=== PATIENT | male | born 1950 | race Two or more races ===

== ENCOUNTER 2017-05-02 14:07 | Emergency (ER) | payer MEDICARE ==
[2017-05-02 14:11] VITALS: BP 143/70; PULSE 63; TEMP 98.3; BMI 30.4
--- NOTE | 2017-05-02 15:03 | PDOC ---
History of Present Illness - General Chief Complaint: Cold Symptoms Stated Complaint: COLD SYMPTOMS Time Seen by Provider: 05/02/17 14:56 History Source: Patient Exam Limitations: No Limitations - History of Present Illness Initial Comments: 05/02/17 15:04 Here with complaints of congestion, throat pain, moist cough and bringing up thick white yellow phlegm 3 days. States younger daughter is ill with same. States smokes cigarettes every other day, but no alcohol or other drug use. Has taken [id number] medications and some aspirin for pain relief with minimal resolved. Timing/Duration: reports: changing over time, getting worse Severity: reports: mild, moderate Associated Symptoms: reports: cough, fever/chills, headache, nasal congestion, sore throat Past History - Travel Traveled outside of the country in the last 30 days: No Close contact w/someone who was outside of country & ill: No - Past Medical History Allergies/Adverse Reactions: Allergies Allergy/AdvReac Type Severity Reaction Status Date / Time No Known Allergies Allergy Verified 05/02/17 14:11 Home Medications: Ambulatory Orders Amlodipine/Valsartan [Exforge 10-160 mg Tablet] 1 tab PO DAILY 04/12/15 Aspirin [ASA -] 81 mg PO DAILY 04/12/15 Nebivolol HCl [Bystolic] 10 mg PO DAILY 04/12/15 Azithromycin [Zithromax -] 250 mg PO UTDICT #6 tab 05/02/17 Omeprazole 20 mg PO 05/02/17 Silodosin [Rapaflo] 8 mg PO 05/02/17 Cardiac Disorders: Yes HTN: Yes - Surgical History Cardiac Surgery: Yes (possible stents, cath) - Immunization History Immunization Up to Date: Yes - Psycho/Social/Smoking Cessation Hx Anxiety: Yes Suicidal Ideation: No Smoking Status: Yes Smoking History: Current every day smoker Number of Cigarettes Smoked Daily: 2 Information on smoking cessation initiated: Yes 'Breaking Loose' booklet given: 05/02/17 Hx Alcohol Use: No Drug/Substance Use Hx: No Respiratory Specific PMHX - Complaint Specific PMHX Angina: No Bronchitis: No Review of Systems - Review of Systems Able to Perform ROS?: Yes Is the patient limited Yi proficient: Yes Constitutional: Yes: Symptoms Reported, See HPI, Chills, Fever, Loss of Appetite , Malaise HEENTM: Yes: Symptoms Reported, See HPI, Nose Congestion, Throat Pain Respiratory: Yes: Symptoms reported, See HPI, Cough. No: Shortness of Breath, Wheezing Musculoskeletal: Yes: Symptoms Reported, See HPI, Muscle Pain Integumentary: Yes: See HPI. No: Symptoms Reported Neurological: Yes: Symptoms reported, See HPI, Headache All Other Systems: Reviewed and Negative *Physical Exam - Vital Signs Last Vital Signs Temp Pulse Resp BP Pulse Ox 98.3 F 63 18 143/70 99 05/02/17 14:05/02/17 14:05/02/17 14:05/02/17 14:05/02/17 14:09 - Physical Exam General Appearance: Yes: Nourished, Appropriately Dressed, Apparent Distress, Mild Distress HEENT: positive: ERWIN, TMs Normal (congested but landmarks easily visualized), Pharynx Normal (mild erythema with posterior sinus drainage noted thick white), Rhinorrhea, Sinus Tenderness. negative: Normal ENT Inspection Respiratory/Chest: positive: Lungs Clear (course into toward expiratory breath sounds, no wheezing or retractions). negative: Normal Breath Sounds Cardiovascular: positive: Regular Rhythm Gastrointestinal/Abdominal: positive: Normal Bowel Sounds, Soft. negative: Tender Musculoskeletal: positive: Normal Inspection Extremity: positive: Normal Capillary Refill, Normal Inspection Integumentary: positive: Normal Color, Dry, Warm, Pale Neurologic: positive: registration representative II-XII NML intact, Fully Oriented, Alert, Normal Mood/ Affect, Normal Response, Motor Strength 5/5 Progress Note - Progress Note Progress Note: Upper respiratory infection, patient is an intermittent smoker therefore we will treat with Zithromax for bacterial infection and have follow-up with PMD *DC/Admit/Observation/Transfer Diagnosis at time of Disposition: Bronchitis - Discharge Dispostion Disposition: HOME Condition at time of disposition: Stable Admit: No - Prescriptions Prescriptions: Azithromycin [Zithromax -] 250 mg PO UTDICT #6 tab - Referrals Referrals: Vincent Cano MD [Primary Care Provider] - - Patient Instructions Printed Discharge Instructions: DI for Acute Bronchitis Additional Instructions: Rest, drink lots of fluids: Teas, water, soups, Pedialyte Saltwater gargles Steamy showers/seem to face break up mucus Avoid contact with others until fevers and cough resolved Lots of handwashing and good hygiene Continue [id number] medications for symptomatic relief Tylenol or Motrin for fever and pain Zithromax as directed Followup with private physician in one to 2 days as needed Return to emergency department for worsened symptoms, fevers, dehydration
== END 2017-05-02 15:27 | disposition home or self-care (01) ==
LOC: JERFT 14:07
DX: J20.9 Acute bronchitis, unspecified (principal); F17.210 Nicotine dependence, cigarettes, uncomplicated; Z95.5 Presence of coronary angioplasty implant and graft
CPT/HCPCS: 99281-25

== ENCOUNTER 2017-07-03 07:42 | Emergency (ER) | payer MEDICARE ==
[2017-07-03 07:54] VITALS: BP 141/72; PULSE 72; TEMP 99.4; BMI 30.2
[2017-07-03] MEDS ORDERED: IBUPROFEN 600 MG TABLET (FP) PO ONE ×2 (08:41→08:42)
--- NOTE | 2017-07-03 08:43 | PDOC ---
History of Present Illness - General Chief Complaint: Cold Symptoms Stated Complaint: FEVER, COLD SYMPTOMS Time Seen by Provider: 07/03/17 08:22 History Source: Patient Exam Limitations: No Limitations - History of Present Illness Initial Comments: 07/03/17 08:41 Patient came to emergency department for evaluation of cough nonproductive, chills and fevers, body aches, sore throat pain. Has taken only Tylenol last night for relief of symptoms. Is an occasional smoker. 07/03/17 09:15 07/03/17 09:23 07/03/17 11:28 Timing/Duration: reports: getting worse Severity: reports: mild, moderate Associated Symptoms: reports: chest pain/soreness, cough, fever/chills, nasal drainage, sore throat Past History - Travel Traveled outside of the country in the last 30 days: No Close contact w/someone who was outside of country & ill: No - Past Medical History Allergies/Adverse Reactions: Allergies Allergy/AdvReac Type Severity Reaction Status Date / Time No Known Allergies Allergy Verified 07/03/17 07:54 Home Medications: Ambulatory Orders Amlodipine/Valsartan [Exforge 10-160 mg Tablet] 1 tab PO DAILY 04/12/15 Aspirin [ASA -] 81 mg PO DAILY 04/12/15 Nebivolol HCl [Bystolic] 10 mg PO DAILY 04/12/15 Omeprazole 20 mg PO DAILY 05/02/17 Silodosin [Rapaflo] 8 mg PO DAILY 05/02/17 Azithromycin [Zithromax -] 250 mg PO UTDICT #6 tab 07/03/17 Cardiac Disorders: Yes HTN: Yes - Surgical History Cardiac Surgery: Yes (cath) - Immunization History Immunization Up to Date: Yes - Suicide/Smoking/Psychosocial Hx Smoking Status: Yes Smoking History: Current some day smoker Number of Cigarettes Smoked Daily: 4 Information on smoking cessation initiated: No 'Breaking Loose' booklet given: 05/02/17 Hx Alcohol Use: No Drug/Substance Use Hx: No Respiratory Specific PMHX - Complaint Specific PMHX Angina: No Bronchitis: No Review of Systems - Review of Systems Able to Perform ROS?: Yes Is the patient limited Gambian proficient: Yes Constitutional: Yes: Symptoms Reported, See HPI, Chills, Fever, Malaise HEENTM: Yes: Symptoms Reported, See HPI, Nose Congestion, Throat Pain Respiratory: Yes: Symptoms reported, See HPI, Cough (non productive ) ABD/GI: Yes: See HPI. No: Symptoms Reported : Yes: See HPI. No: Symptoms Reported Musculoskeletal: Yes: Symptoms Reported, Joint Pain Integumentary: Yes: Symptoms Reported, See HPI Neurological: Yes: Symptoms reported, See HPI, Headache All Other Systems: Reviewed and Negative *Physical Exam - Vital Signs Last Vital Signs Temp Pulse Resp BP Pulse Ox 99.4 F 72 20 141/72 97 07/03/17 07:52 07/03/17 07:52 07/03/17 07:52 07/03/17 07:52 07/03/17 07:52 - Physical Exam General Appearance: Yes: Nourished, Appropriately Dressed, Apparent Distress, Mild Distress HEENT: positive: ERWIN, Pharynx Normal (erythema without exudate), Rhinorrhea ( clear), Sinus Tenderness. negative: TMs Normal (congested ) Neck: positive: Supple. negative: Tender Respiratory/Chest: positive: Normal Breath Sounds. negative: Lungs Clear ( course bilaterally, no wheezing or retractions) Cardiovascular: positive: Regular Rate Extremity: positive: Normal Capillary Refill, Normal Inspection Integumentary: positive: Dry, Warm, Pale Neurologic: positive: compensation adjuster II-XII NML intact, Fully Oriented, Alert, Normal Mood/ Affect, Normal Response, Motor Strength 5/5 Progress Note - Progress Note Progress Note: Upper respiratory infection, influenza testing negative. We will treat with Z- Noam as patient is a smoker and febrile with a respiratory illness. *DC/Admit/Observation/Transfer Diagnosis at time of Disposition: Bronchitis, acute Qualifiers: Bronchitis organism: unspecified organism Qualified Code(s): J20.9 - Acute bronchitis, unspecified - Discharge Dispostion Disposition: HOME Condition at time of disposition: Stable Admit: No - Prescriptions Prescriptions: Azithromycin [Zithromax -] 250 mg PO UTDICT #6 tab - Referrals Referrals: Vincent Cano MD [Primary Care Provider] - - Patient Instructions Printed Discharge Instructions: DI for Viral Upper Respiratory Infection -- Adult Additional Instructions: Rest, drink lots of fluids: Teas, water, soups, Pedialyte Saltwater gargles Steamy showers/seem to face break up mucus Avoid contact with others until fevers and cough resolved Lots of handwashing and good hygiene Continue [id number] medications for symptomatic relief Tylenol or Motrin for fever and pain Zithromax as directed Followup with private physician in one to 2 days as needed Return to emergency department for worsened symptoms, fevers, dehydration - Post Discharge Activity Forms/Work/School Notes: Back to Work
== END 2017-07-03 09:46 | disposition home or self-care (01) ==
LOC: JERFT 07:42
DX: J20.9 Acute bronchitis, unspecified (principal); I25.10 Atherosclerotic heart disease of native coronary artery without angina pectoris; Z98.61 Coronary angioplasty status; I10 Essential (primary) hypertension; F17.211 Nicotine dependence, cigarettes, in remission
CPT/HCPCS: 87804; 99281-25

== ENCOUNTER 2020-12-22 16:05 | Inpatient (IN) | payer MEDICARE ==
[2020-12-22] MEDS ORDERED: METOPROLOL TARTRATE 5 MG/5 ML VIAL IVPUSH ONE ×2 (16:47→18:49)
[2020-12-22] MEDS ORDERED: METOPROLOL TARTRATE 5 MG/5 ML VIAL ONE ×2 (17:01→20:05)
[2020-12-22 18:00] LABS: BASO % 1.2 % (0-2.0); HEMATOCRIT 45.1 % (35.4-49); LYMPH % 39.2 % (8-40); MCH 29.6 pg (25.7-33.7); MCHC 33.2 g/dl (32.0-35.9); MEAN CELL VOLUME 89.4 fl (80-96); MEAN PLT VOLUME 10.6 fl (7.5-11.1); MONO % 9.8 % (3.8-10.2); NEUT % 48.8 % (42.8-82.8); PLATELET COUNT 217 K/MM3 (134-434); RBC 5.05 M/mm3 (4.00-5.60); RDW 14.8 % (11.9-15.9); WHITE BLOOD COUNT 5.9 K/mm3 (4.0-10.0)
[2020-12-22 18:20] LABS: CHLORIDE 104 mmol/L (98-107); POTASSIUM 3.6 mmol/L (3.5-5.1); SODIUM 138 mmol/L (136-145)
[2020-12-22 18:22] LABS: CALCIUM 9.6 mg/dL (8.5-10.1)
[2020-12-22 18:23] LABS: ALBUMIN 3.7 g/dl (3.4-5.0); ANION GAP 6 MMOL/L (8-16); BLOOD UREA NITROGEN 18.7 mg/dL (7-18); CO2 28 mmol/L (21-32); GLUCOSE,RANDOM 98 mg/dL (74-106)
[2020-12-22 18:26] LABS: CREATININE 1.3 mg/dL (0.55-1.3); SGOT/AST 25 U/L (15-37); SGPT/ALT 36 U/L (13-61)
[2020-12-22 18:28] LABS: TOT PROT 7.2 g/dl (6.4-8.2)
[2020-12-22 18:29] LABS: ALK PHOS 51 U/L (45-117)
[2020-12-22] MEDS ORDERED: METOPROLOL TARTRATE 25 MG TABLET (FP) PO ONE (19:17)
[2020-12-22 19:56] LABS: INR 1.43 (0.83-1.09); PROTHROMBIN TIME (PATIENT) 17.1 SEC (9.7-13.0)
[2020-12-22 19:59] LABS: ACTIVATED PTT 33.6 SECONDS (25.2-36.5)
[2020-12-22] MEDS ORDERED: METOPROLOL TARTRATE 25 MG TABLET (FP) ONE (20:05)
[2020-12-22] MEDS ORDERED: APIXABAN 5 MG TABLET ONE (22:44)
[2020-12-22] MEDS: APIXABAN 5 MG TABLET PO SCH (22:46)
[2020-12-23 00:32] VITALS: BMI 29.4
[2020-12-23 07:45] LABS: BASO % 1.1 % (0-2.0); EOS % 1.4 % (0-4.5); HEMATOCRIT 45.2 % (35.4-49); HEMOGLOBIN 15.4 GM/dL (11.7-16.9); LYMPH % 39.5 % (8-40); MCH 30.1 pg (25.7-33.7); MEAN CELL VOLUME 88.7 fl (80-96); MEAN PLT VOLUME 10.3 fl (7.5-11.1); MONO % 10.6 % (3.8-10.2); NEUT % 47.4 % (42.8-82.8); PLATELET COUNT 196 K/MM3 (134-434); RDW 14.6 % (11.9-15.9); WHITE BLOOD COUNT 5.4 K/mm3 (4.0-10.0)
[2020-12-23 08:01] LABS: CALCIUM 9.1 mg/dL (8.5-10.1)
[2020-12-23 08:02] LABS: ALBUMIN 3.5 g/dl (3.4-5.0); BLOOD UREA NITROGEN 14.6 mg/dL (7-18)
[2020-12-23 08:05] LABS: CREATININE 1.1 mg/dL (0.55-1.3)
[2020-12-23 08:06] LABS: BILIRUBIN,TOTAL 1.8 mg/dL (0.2-1)
[2020-12-23] MEDS: APIXABAN 5 MG TABLET PO SCH ×2 (09:40→21:19)
[2020-12-23] MEDS: TAMSULOSIN HCL 0.4 MG CAP PO SCH (09:40)
[2020-12-23] MEDS: ASCORBIC ACID 500 MG TABLET (FP) PO SCH (09:40)
[2020-12-23] MEDS: POTASSIUM CHLORIDE TABS 20 MEQ TABLET.ER (FP) PO SCH (09:56)
[2020-12-23] MEDS ORDERED: metoPROLOL SUCCINATE 25 MG TAB.SR.24H (FP) PO SCH (10:00)
[2020-12-23] MEDS ORDERED: ASPIRIN 81 MG CHEWABLE TABLETS PO SCH (10:00)
[2020-12-24 08:26] LABS: POTASSIUM 3.8 mmol/L (3.5-5.1)
[2020-12-24 08:29] LABS: CALCIUM 9.2 mg/dL (8.5-10.1)
[2020-12-24 08:30] LABS: BLOOD UREA NITROGEN 15.6 mg/dL (7-18)
[2020-12-24 08:33] LABS: CREATININE 1.2 mg/dL (0.55-1.3)
[2020-12-24] MEDS: POTASSIUM CHLORIDE TABS 20 MEQ TABLET.ER (FP) PO SCH (09:21)
[2020-12-24] MEDS: APIXABAN 5 MG TABLET PO SCH ×2 (09:21→21:52)
[2020-12-24] MEDS: TAMSULOSIN HCL 0.4 MG CAP PO SCH (09:22)
[2020-12-24] MEDS: ASCORBIC ACID 500 MG TABLET (FP) PO SCH (09:22)
[2020-12-24] MEDS: amLODIPine BESYLATE 5 MG TABLET (FP) PO SCH (09:57)
[2020-12-25 07:57] LABS: HEMATOCRIT 44.2 % (35.4-49); HEMOGLOBIN 15.1 GM/dL (11.7-16.9); MCH 30.5 pg (25.7-33.7); MCHC 34.1 g/dl (32.0-35.9); MEAN CELL VOLUME 89.6 fl (80-96); MEAN PLT VOLUME 10.6 fl (7.5-11.1); PLATELET COUNT 188 K/MM3 (134-434); RBC 4.94 M/mm3 (4.00-5.60); WHITE BLOOD COUNT 5.5 K/mm3 (4.0-10.0)
[2020-12-25 08:20] LABS: POTASSIUM 3.5 mmol/L (3.5-5.1)
[2020-12-25 08:25] LABS: CALCIUM 9.1 mg/dL (8.5-10.1)
[2020-12-25 08:26] LABS: ALBUMIN 3.4 g/dl (3.4-5.0); BLOOD UREA NITROGEN 18.5 mg/dL (7-18)
[2020-12-25 08:29] LABS: CREATININE 1.2 mg/dL (0.55-1.3)
[2020-12-25 08:30] LABS: BILIRUBIN,TOTAL 1.2 mg/dL (0.2-1)
[2020-12-25 08:31] LABS: TOT PROT 6.7 g/dl (6.4-8.2)
[2020-12-25] MEDS: POTASSIUM CHLORIDE TABS 20 MEQ TABLET.ER (FP) PO SCH (09:53)
[2020-12-25] MEDS: APIXABAN 5 MG TABLET PO SCH ×2 (09:54→21:22)
[2020-12-25] MEDS: TAMSULOSIN HCL 0.4 MG CAP PO SCH (09:54)
[2020-12-25] MEDS: amLODIPine BESYLATE 5 MG TABLET (FP) PO SCH (09:54)
[2020-12-25] MEDS: ASCORBIC ACID 500 MG TABLET (FP) PO SCH (09:54)
[2020-12-25] MEDS: dilTIAZem HCL 30 MG TABLET PO SCH ×2 (14:39→21:22)
[2020-12-26] MEDS: dilTIAZem HCL 30 MG TABLET PO SCH (05:17)
[2020-12-26 07:28] LABS: HEMATOCRIT 45.6 % (35.4-49); HEMOGLOBIN 15.6 GM/dL (11.7-16.9); MCH 30.1 pg (25.7-33.7); MCHC 34.2 g/dl (32.0-35.9); MEAN CELL VOLUME 87.9 fl (80-96); MEAN PLT VOLUME 10.1 fl (7.5-11.1); PLATELET COUNT 196 K/MM3 (134-434); RBC 5.19 M/mm3 (4.00-5.60); RDW 14.9 % (11.9-15.9); WHITE BLOOD COUNT 5.1 K/mm3 (4.0-10.0)
[2020-12-26 07:52] LABS: POTASSIUM 3.7 mmol/L (3.5-5.1)
[2020-12-26 08:08] LABS: ALBUMIN 3.5 g/dl (3.4-5.0); BLOOD UREA NITROGEN 20.4 mg/dL (7-18); CALCIUM 9.2 mg/dL (8.5-10.1)
[2020-12-26 08:11] LABS: CREATININE 1.2 mg/dL (0.55-1.3)
[2020-12-26 08:13] LABS: BILIRUBIN,TOTAL 1.7 mg/dL (0.2-1); TOT PROT 6.8 g/dl (6.4-8.2)
[2020-12-26] MEDS: TAMSULOSIN HCL 0.4 MG CAP PO SCH (09:48)
[2020-12-26] MEDS: ASCORBIC ACID 500 MG TABLET (FP) PO SCH (09:48)
[2020-12-26] MEDS: POTASSIUM CHLORIDE TABS 20 MEQ TABLET.ER (FP) PO SCH (09:48)
[2020-12-26] MEDS: APIXABAN 5 MG TABLET PO SCH (09:48)
[2020-12-26 15:41] VITALS: BP 140/84; PULSE 85; TEMP 98.2
== END 2020-12-26 16:46 | disposition home or self-care (01) | DRG 310 ==
LOC: JER 16:05 → JERBED 19:32 → J4W 23:35
PROVIDERS: ADMIT Internal Medicine; ATTEND Family Medicine
DX: I48.91 Unspecified atrial fibrillation (principal); I10 Essential (primary) hypertension; I25.10 Atherosclerotic heart disease of native coronary artery without angina pectoris; R07.9 Chest pain, unspecified; E87.6 Hypokalemia; E66.9 Obesity, unspecified; Z68.29 Body mass index [BMI] 29.0-29.9, adult; R00.0 Tachycardia, unspecified
CPT/HCPCS: 36415; 71045-TC-FY; 80048; 80053; 84443; 84484; 85025; 85027; 85610; 85730; 93005; 93010; 99285-25; C9803; U0003

== ENCOUNTER 2021-02-15 12:51 | Inpatient (IN) | payer MEDICARE ==
[2021-02-15 13:10] VITALS: BMI 30.1
[2021-02-15] MEDS ORDERED: FUROSEMIDE 40 MG/4 ML INJECTABLE VIAL IVPUSH ONE (14:48)
[2021-02-15] MEDS ORDERED: dilTIAZem HCL 50 MG/10 ML - 10 ML VIAL IVPUSH ONE (14:54)
[2021-02-15] MEDS ORDERED: dilTIAZem HCL 125 MG/25 ML - 25 ML VIAL ONE (14:58)
[2021-02-15] MEDS ORDERED: FUROSEMIDE 40 MG/4 ML INJECTABLE VIAL ONE (15:00)
[2021-02-15 15:20] LABS: BASO % 1.2 % (0-2.0); EOS % 1.3 % (0-4.5); HEMATOCRIT 46.1 % (35.4-49); HEMOGLOBIN 16.2 GM/dL (11.7-16.9); LYMPH % 41.4 % (8-40); MCH 30.6 pg (25.7-33.7); MCHC 35.1 g/dl (32.0-35.9); MEAN CELL VOLUME 87.2 fl (80-96); MEAN PLT VOLUME 10.1 fl (7.5-11.1); MONO % 10.5 % (3.8-10.2); NEUT % 45.6 % (42.8-82.8); PLATELET COUNT 163 K/MM3 (134-434); RBC 5.29 M/mm3 (4.00-5.60); RDW 15.1 % (11.9-15.9); WHITE BLOOD COUNT 6.7 K/mm3 (4.0-10.0)
[2021-02-15 15:24] LABS: INR 1.61 (0.83-1.09); PROTHROMBIN TIME (PATIENT) 19.5 SEC (9.7-13.0)
[2021-02-15 15:57] LABS: CHLORIDE 102 mmol/L (98-107); SODIUM 138 mmol/L (136-145)
[2021-02-15 16:00] LABS: ALBUMIN 3.7 g/dl (3.4-5.0); ANION GAP 7 MMOL/L (8-16); CALCIUM 9.2 mg/dL (8.5-10.1); CO2 29 mmol/L (21-32); GLUCOSE,RANDOM 91 mg/dL (74-106)
[2021-02-15 16:01] LABS: BLOOD UREA NITROGEN 16.4 mg/dL (7-18)
[2021-02-15 16:02] LABS: PHOSPHOROUS 3.8 mg/dL (2.5-4.9)
[2021-02-15 16:03] LABS: SGPT/ALT 28 U/L (13-61)
[2021-02-15 16:04] LABS: CREATININE 1.7 mg/dL (0.55-1.3); SGOT/AST 38 U/L (15-37)
[2021-02-15 16:05] LABS: TOT PROT 7.2 g/dl (6.4-8.2)
[2021-02-15 16:06] LABS: ALK PHOS 56 U/L (45-117)
[2021-02-15 16:12] LABS: N-TERMINAL BNP 3925.3 pg/ml (5-125)
[2021-02-15 16:30] LABS: BILIRUBIN,TOTAL 0.9 mg/dL (0.2-1)
[2021-02-15] MEDS ORDERED: dilTIAZem HCL 30 MG TABLET PO ONE (17:19)
[2021-02-15] MEDS ORDERED: dilTIAZem HCL 30 MG TABLET ONE (17:27)
[2021-02-16] MEDS: APIXABAN 5 MG TABLET PO SCH ×3 (00:31→22:33)
[2021-02-16] MEDS ORDERED: METOPROLOL TARTRATE 5 MG/5 ML VIAL IVPUSH ONE (00:42)
[2021-02-16 07:11] LABS: EOS % 0.8 % (0-4.5); HEMATOCRIT 47.1 % (35.4-49); HEMOGLOBIN 16.1 GM/dL (11.7-16.9); LYMPH % 35.9 % (8-40); MCH 30.4 pg (25.7-33.7); MCHC 34.2 g/dl (32.0-35.9); MEAN CELL VOLUME 88.8 fl (80-96); MEAN PLT VOLUME 11.3 fl (7.5-11.1); MONO % 10.5 % (3.8-10.2); NEUT % 51.8 % (42.8-82.8); PLATELET COUNT 161 K/MM3 (134-434); RDW 15.3 % (11.9-15.9); WHITE BLOOD COUNT 5.9 K/mm3 (4.0-10.0)
[2021-02-16 07:26] LABS: CHLORIDE 103 mmol/L (98-107); SODIUM 142 mmol/L (136-145)
[2021-02-16 07:29] LABS: CALCIUM 9.1 mg/dL (8.5-10.1)
[2021-02-16] MEDS ORDERED: ALBUTEROL SO4 HFA INHALER IH PRN (07:29)
[2021-02-16 07:30] LABS: ALBUMIN 3.7 g/dl (3.4-5.0); ANION GAP 7 MMOL/L (8-16); BLOOD UREA NITROGEN 18.9 mg/dL (7-18); CO2 32 mmol/L (21-32); GLUCOSE,RANDOM 102 mg/dL (74-106); MAGNESIUM 1.8 mg/dL (1.8-2.4)
[2021-02-16 07:33] LABS: CREATININE 1.5 mg/dL (0.55-1.3); SGOT/AST 14 U/L (15-37); SGPT/ALT 26 U/L (13-61)
[2021-02-16 07:35] LABS: BILIRUBIN,TOTAL 1.3 mg/dL (0.2-1); TOT PROT 7.2 g/dl (6.4-8.2)
[2021-02-16 07:36] LABS: ALK PHOS 52 U/L (45-117)
[2021-02-16] MEDS ORDERED: METOPROLOL TARTRATE 5 MG/5 ML VIAL IVPUSH PRN (08:45)
[2021-02-16] MEDS: TAMSULOSIN HCL 0.4 MG CAP PO SCH (09:00)
[2021-02-16] MEDS: ASPIRIN 81 MG CHEWABLE TABLETS PO SCH (09:44)
[2021-02-16] MEDS: CYANOCOBALAMIN 1,000 MCG TABLET (FP) PO SCH (09:44)
[2021-02-16] MEDS: ASCORBIC ACID 500 MG TABLET (FP) PO SCH (09:44)
[2021-02-16] MEDS: FUROSEMIDE 40 MG/4 ML INJECTABLE VIAL IVPUSH SCH (10:08)
[2021-02-16] MEDS: POTASSIUM CHLORIDE TABS 20 MEQ TABLET.ER (FP) PO SCH (12:51)
[2021-02-16 19:50] LABS: EPI CELLS 12 /uL (0-25.1); HYALINE CASTS 1 /uL (0-3.1); URINE APPEARANCE CLEAR; URINE BACTERIA 522 /uL (0-1359); URINE BILIRUBIN NEGATIVE (NEGATIVE); URINE COLOR YELLOW; URINE GLUCOSE (UA) NEGATIVE (NEGATIVE); URINE KETONE TRACE (NEGATIVE); URINE LEUK ESTERASE NEGATIVE (NEGATIVE); URINE NITRITE NEGATIVE (NEGATIVE); URINE PROTEIN 1+ (NEGATIVE); URINE RBC 31 /uL (0-23.9); URINE UROBILINOGEN 0.2 mg/dL (0.2-1.0); URINE WBC 18 /uL (0-25.8)
[2021-02-16] MEDS ORDERED: POTASSIUM CHLORIDE TABS 20 MEQ TABLET.ER (FP) PO ONE (22:00)
[2021-02-17 07:24] LABS: CALCIUM 9.1 mg/dL (8.5-10.1)
[2021-02-17 07:25] LABS: ALBUMIN 3.8 g/dl (3.4-5.0); BLOOD UREA NITROGEN 18.6 mg/dL (7-18)
[2021-02-17 07:28] LABS: CREATININE 1.4 mg/dL (0.55-1.3)
[2021-02-17 07:29] LABS: BILIRUBIN,TOTAL 1.7 mg/dL (0.2-1)
[2021-02-17] MEDS: POTASSIUM CHLORIDE TABS 20 MEQ TABLET.ER (FP) PO SCH (09:28)
[2021-02-17] MEDS: APIXABAN 5 MG TABLET PO SCH ×2 (09:28→22:17)
[2021-02-17] MEDS: TAMSULOSIN HCL 0.4 MG CAP PO SCH (09:28)
[2021-02-17] MEDS: ASPIRIN 81 MG CHEWABLE TABLETS PO SCH (09:28)
[2021-02-17] MEDS: ASCORBIC ACID 500 MG TABLET (FP) PO SCH (09:29)
[2021-02-17] MEDS: CYANOCOBALAMIN 1,000 MCG TABLET (FP) PO SCH (09:29)
[2021-02-17] MEDS: FUROSEMIDE 40 MG/4 ML INJECTABLE VIAL IVPUSH SCH (09:29)
[2021-02-17 12:09] LABS: SARS-CoV-2 NAA Not Detected (Not Detected)
[2021-02-17] MEDS ORDERED: FUROSEMIDE 40 MG/4 ML INJECTABLE VIAL IVPUSH ONE (15:00)
[2021-02-17 21:10] LABS: CALCIUM 9.2 mg/dL (8.5-10.1)
[2021-02-17 21:11] LABS: BLOOD UREA NITROGEN 17.2 mg/dL (7-18); MAGNESIUM 1.9 mg/dL (1.8-2.4)
[2021-02-17 21:14] LABS: CREATININE 1.6 mg/dL (0.55-1.3)
[2021-02-18 07:47] LABS: ALBUMIN 3.6 g/dl (3.4-5.0); BLOOD UREA NITROGEN 18.2 mg/dL (7-18); CALCIUM 9.6 mg/dL (8.5-10.1); MAGNESIUM 1.9 mg/dL (1.8-2.4)
[2021-02-18 07:51] LABS: CREATININE 1.6 mg/dL (0.55-1.3)
[2021-02-18 07:52] LABS: BILIRUBIN,TOTAL 1.4 mg/dL (0.2-1); TOT PROT 6.9 g/dl (6.4-8.2)
[2021-02-18] MEDS: POTASSIUM CHLORIDE TABS 20 MEQ TABLET.ER (FP) PO SCH (09:39)
[2021-02-18] MEDS: TAMSULOSIN HCL 0.4 MG CAP PO SCH (09:39)
[2021-02-18] MEDS: ASPIRIN 81 MG CHEWABLE TABLETS PO SCH (09:39)
[2021-02-18] MEDS: APIXABAN 5 MG TABLET PO SCH ×2 (09:39→22:25)
[2021-02-18] MEDS: CYANOCOBALAMIN 1,000 MCG TABLET (FP) PO SCH (09:40)
[2021-02-18] MEDS: ASCORBIC ACID 500 MG TABLET (FP) PO SCH (09:40)
[2021-02-18] MEDS: FUROSEMIDE 40 MG/4 ML INJECTABLE VIAL IVPUSH SCH (09:40)
[2021-02-19 07:14] LABS: HEMATOCRIT 43.7 % (35.4-49); MCH 30.2 pg (25.7-33.7); MCHC 34.2 g/dl (32.0-35.9); MEAN CELL VOLUME 88.1 fl (80-96); MEAN PLT VOLUME 10.9 fl (7.5-11.1); PLATELET COUNT 148 K/MM3 (134-434); RBC 4.96 M/mm3 (4.00-5.60); RDW 14.9 % (11.9-15.9); WHITE BLOOD COUNT 5.2 K/mm3 (4.0-10.0)
[2021-02-19 08:24] LABS: ALBUMIN 3.4 g/dl (3.4-5.0); CALCIUM 9.2 mg/dL (8.5-10.1)
[2021-02-19 08:25] LABS: BLOOD UREA NITROGEN 18.1 mg/dL (7-18); MAGNESIUM 1.8 mg/dL (1.8-2.4)
[2021-02-19 08:28] LABS: CREATININE 1.3 mg/dL (0.55-1.3); PHOSPHOROUS 3.3 mg/dL (2.5-4.9)
[2021-02-19 08:29] LABS: BILIRUBIN,TOTAL 1.1 mg/dL (0.2-1); TOT PROT 6.5 g/dl (6.4-8.2)
[2021-02-19] MEDS: POTASSIUM CHLORIDE TABS 20 MEQ TABLET.ER (FP) PO SCH (09:54)
[2021-02-19] MEDS: ASPIRIN 81 MG CHEWABLE TABLETS PO SCH (09:54)
[2021-02-19] MEDS: APIXABAN 5 MG TABLET PO SCH (09:54)
[2021-02-19] MEDS: ASCORBIC ACID 500 MG TABLET (FP) PO SCH (09:54)
[2021-02-19] MEDS: CYANOCOBALAMIN 1,000 MCG TABLET (FP) PO SCH (09:54)
[2021-02-19] MEDS: FUROSEMIDE 40 MG/4 ML INJECTABLE VIAL IVPUSH SCH (09:54)
[2021-02-19] MEDS: TAMSULOSIN HCL 0.4 MG CAP PO SCH (09:55)
[2021-02-19 14:13] VITALS: BP 131/93; PULSE 110; TEMP 98.1
[2021-02-20] MEDS ORDERED: FUROSEMIDE 40 MG TABLET (FP) PO SCH (10:00)
== END 2021-02-19 15:43 | disposition home or self-care (01) | DRG 308 ==
LOC: JER 12:51 → JERBED 17:16 → J4W 02-16 00:27
PROVIDERS: ADMIT Internal Medicine; ATTEND Family Medicine
DX: I48.91 Unspecified atrial fibrillation (principal); I50.33 Acute on chronic diastolic (congestive) heart failure; N17.9 Acute kidney failure, unspecified; I48.92 Unspecified atrial flutter; N40.0 Benign prostatic hyperplasia without lower urinary tract symptoms; E66.9 Obesity, unspecified; Z68.30 Body mass index [BMI] 30.0-30.9, adult; I11.0 Hypertensive heart disease with heart failure; I87.2 Venous insufficiency (chronic) (peripheral); R29.818 Other symptoms and signs involving the nervous system; E87.6 Hypokalemia
CPT/HCPCS: 36415; 71045-TC-FY; 76775-TC; 80048; 80053; 81003; 82550; 82553; 82570; 83735; 83880; 84100; 84156; 84439; 84443; 84484; 85025; 85027; 85610; 85730; 93005; 93010; 97116-GP; 97161-GP; 99285-25; C9803; U0003; U0005

== ENCOUNTER 2021-03-12 16:44 | Inpatient (IN) | payer MEDICARE, OTHER ==
[2021-03-12 17:52] LABS: BASO % 0.5 % (0-2.0); EOS % 0.7 % (0-4.5); HEMATOCRIT 46.6 % (35.4-49); HEMOGLOBIN 15.6 GM/dL (11.7-16.9); LYMPH % 29.5 % (8-40); MCH 29.9 pg (25.7-33.7); MCHC 33.4 g/dl (32.0-35.9); MEAN CELL VOLUME 89.5 fl (80-96); MONO % 8.2 % (3.8-10.2); NEUT % 61.1 % (42.8-82.8); PLATELET COUNT 192 K/MM3 (134-434); RBC 5.21 M/mm3 (4.00-5.60); RDW 15.7 % (11.9-15.9); WHITE BLOOD COUNT 8.2 K/mm3 (4.0-10.0)
[2021-03-12 17:58] LABS: INR 1.28 (0.83-1.09); PROTHROMBIN TIME (PATIENT) 15.4 SEC (9.7-13.0)
[2021-03-12 18:01] LABS: ACTIVATED PTT 30.6 SECONDS (25.2-36.5)
[2021-03-12] MEDS ORDERED: ALBUTEROL SO4 2.5/IPRATROPIUM 0.5 INH SOL 3 ML VIAL.NEB. NEB ONE ×2 (18:01→18:13)
[2021-03-12 18:11] LABS: CHLORIDE 106 mmol/L (98-107); SODIUM 141 mmol/L (136-145)
[2021-03-12 18:12] LABS: CALCIUM 9.2 mg/dL (8.5-10.1)
[2021-03-12 18:13] LABS: ALBUMIN 3.6 g/dl (3.4-5.0); ANION GAP 9 MMOL/L (8-16); BLOOD UREA NITROGEN 23.5 mg/dL (7-18); CO2 26 mmol/L (21-32); GLUCOSE,RANDOM 141 mg/dL (74-106)
[2021-03-12 18:16] LABS: CREATININE 1.7 mg/dL (0.55-1.3); SGOT/AST 40 U/L (15-37); SGPT/ALT 73 U/L (13-61)
[2021-03-12 18:17] LABS: BILIRUBIN,TOTAL 0.5 mg/dL (0.2-1); TOT PROT 6.5 g/dl (6.4-8.2)
[2021-03-12 18:20] LABS: ALK PHOS 59 U/L (45-117)
[2021-03-12 18:26] LABS: VENOUS BASE EXCESS -1.9 mmol/L (-2-2); VENOUS O2 SATURATION 86.7 % (70-80); VENOUS PCO2 33.9 mmHg (38-52); VENOUS PH 7.423 (7.310-7.410)
[2021-03-12] MEDS ORDERED: POTASSIUM CHLORIDE TABS 20 MEQ TABLET.ER (FP) PO ONE ×2 (19:49→21:55)
[2021-03-12] MEDS ORDERED: ALBUTEROL SO4 HFA INHALER IH PRN (21:58)
[2021-03-12] MEDS ORDERED: methylPREDNISolone NA SUCC 125 MG/2 ML VIAL IVPUSH ONE (22:00)
[2021-03-12] MEDS ORDERED: ALBUTEROL SO4 HFA INHALER IH ONE (22:13)
[2021-03-12] MEDS ORDERED: methylPREDNISolone NA SUCC 125 MG/2 ML VIAL ONE (22:13)
[2021-03-12] MEDS ORDERED: APIXABAN 5 MG TABLET ONE (22:13)
[2021-03-12] MEDS: APIXABAN 5 MG TABLET PO SCH (22:16)
[2021-03-12] MEDS ORDERED: ALBUTEROL SO4 2.5/IPRATROPIUM 0.5 INH SOL 3 ML VIAL.NEB. NEB PRN (23:43)
[2021-03-13 01:45] VITALS: BMI 38.7
[2021-03-13 06:43] LABS: BASO % 0.3 % (0-2.0); HEMATOCRIT 46.1 % (35.4-49); HEMOGLOBIN 15.5 GM/dL (11.7-16.9); LYMPH % 11.1 % (8-40); MCH 30.2 pg (25.7-33.7); MCHC 33.6 g/dl (32.0-35.9); MEAN CELL VOLUME 90.1 fl (80-96); MEAN PLT VOLUME 10.1 fl (7.5-11.1); MONO % 1.7 % (3.8-10.2); NEUT % 86.9 % (42.8-82.8); PLATELET COUNT 180 K/MM3 (134-434); RBC 5.12 M/mm3 (4.00-5.60); RDW 15.7 % (11.9-15.9); WHITE BLOOD COUNT 7.1 K/mm3 (4.0-10.0)
[2021-03-13 07:09] LABS: ALBUMIN 3.4 g/dl (3.4-5.0); BLOOD UREA NITROGEN 19.2 mg/dL (7-18)
[2021-03-13 07:11] LABS: CALCIUM 9.4 mg/dL (8.5-10.1)
[2021-03-13 07:14] LABS: CREATININE 1.5 mg/dL (0.55-1.3)
[2021-03-13 07:15] LABS: BILIRUBIN,TOTAL 1.7 mg/dL (0.2-1); TOT PROT 6.6 g/dl (6.4-8.2)
[2021-03-13] MEDS ORDERED: methylPREDNISolone NA SUCC 40 MG/1 ML VIAL IVPUSH SCH (10:00)
[2021-03-13] MEDS: APIXABAN 5 MG TABLET PO SCH ×2 (10:18→21:16)
[2021-03-13] MEDS: TAMSULOSIN HCL 0.4 MG CAP PO SCH (10:18)
[2021-03-13] MEDS: POTASSIUM CHLORIDE TABS 20 MEQ TABLET.ER (FP) PO SCH (10:19)
[2021-03-13] MEDS: ASPIRIN 81 MG CHEWABLE TABLETS PO SCH (10:20)
[2021-03-13] MEDS: ALBUTEROL SO4 2.5/IPRATROPIUM 0.5 INH SOL 3 ML VIAL.NEB. NEB SCH ×2 (15:25→20:40)
[2021-03-14 09:30] VITALS: BP 109/57; PULSE 90; TEMP 98.1
[2021-03-14] MEDS: TAMSULOSIN HCL 0.4 MG CAP PO SCH (09:44)
[2021-03-14] MEDS: APIXABAN 5 MG TABLET PO SCH (09:44)
[2021-03-14] MEDS: POTASSIUM CHLORIDE TABS 20 MEQ TABLET.ER (FP) PO SCH (09:45)
[2021-03-14] MEDS: ASPIRIN 81 MG CHEWABLE TABLETS PO SCH (09:45)
[2021-03-14] MEDS ORDERED: predniSONE 20 MG TABLET (UD) PO SCH (10:00)
== END 2021-03-14 10:33 | disposition home or self-care (01) | DRG 191 ==
LOC: JER 16:44 → JERBED 18:07 → J4S 03-13 00:42
PROVIDERS: ADMIT Internal Medicine; ATTEND Family Medicine
DX: J44.1 Chronic obstructive pulmonary disease with (acute) exacerbation (principal); N17.9 Acute kidney failure, unspecified; I50.32 Chronic diastolic (congestive) heart failure; I10 Essential (primary) hypertension; I48.91 Unspecified atrial fibrillation; E78.00 Pure hypercholesterolemia, unspecified; N40.0 Benign prostatic hyperplasia without lower urinary tract symptoms; E87.6 Hypokalemia; I11.0 Hypertensive heart disease with heart failure; R29.818 Other symptoms and signs involving the nervous system; Z86.711 Personal history of pulmonary embolism; Z86.718 Personal history of other venous thrombosis and embolism; Z86.73 Personal history of transient ischemic attack (TIA), and cerebral infarction without residual deficits
CPT/HCPCS: 36415; 71045-TC-FY; 80053; 82803; 83735; 83880; 84484; 85025; 85610; 85730; 93005; 93010; 94640; 99285-25; C9803; U0003; U0005

== ENCOUNTER 2021-05-21 14:37 | Inpatient (IN) | payer MEDICARE, OTHER ==
[2021-05-21 14:53] VITALS: BMI 30.1
[2021-05-21] MEDS ORDERED: dilTIAZem HCL 50 MG/10 ML - 10 ML VIAL IVPUSH ONE (15:42)
[2021-05-21] MEDS ORDERED: dilTIAZem HCL 125 MG/25 ML - 25 ML VIAL ONE (15:51)
[2021-05-21] MEDS ORDERED: dilTIAZem HCL 60 MG TABLET PO ONE (16:02)
[2021-05-21 16:08] LABS: BASO % 0.8 % (0-2.0); EOS % 0.6 % (0-4.5); HEMATOCRIT 44.3 % (35.4-49); HEMOGLOBIN 15.2 GM/dL (11.7-16.9); LYMPH % 31.9 % (8-40); MCH 30.3 pg (25.7-33.7); MCHC 34.2 g/dl (32.0-35.9); MEAN CELL VOLUME 88.7 fl (80-96); MEAN PLT VOLUME 9.8 fl (7.5-11.1); MONO % 10.7 % (3.8-10.2); PLATELET COUNT 194 10^3/uL (134-434); RDW 15.8 % (11.9-15.9)
[2021-05-21] MEDS ORDERED: dilTIAZem HCL 60 MG TABLET ONE (16:10)
[2021-05-21 16:21] LABS: CHLORIDE 103 mmol/L (98-107); SODIUM 142 mmol/L (136-145)
[2021-05-21 16:23] LABS: CALCIUM 9.4 mg/dL (8.5-10.1)
[2021-05-21 16:24] LABS: ALBUMIN 3.4 g/dl (3.4-5.0); ANION GAP 6 MMOL/L (8-16); CO2 33 mmol/L (21-32); GLUCOSE,RANDOM 117 mg/dL (74-106)
[2021-05-21 16:27] LABS: CREATININE 1.5 mg/dL (0.55-1.3); SGOT/AST 23 U/L (15-37); SGPT/ALT 23 U/L (13-61)
[2021-05-21 16:29] LABS: TOT PROT 6.6 g/dl (6.4-8.2)
[2021-05-21 16:30] LABS: ALK PHOS 53 U/L (45-117); BLOOD UREA NITROGEN 18.7 mg/dL (7-18)
[2021-05-21 16:32] LABS: N-TERMINAL BNP 4847.1 pg/ml (5-125)
[2021-05-21] MEDS ORDERED: ASPIRIN 81 MG CHEWABLE TABLETS PO ONE (16:38)
[2021-05-21] MEDS ORDERED: ASPIRIN 81 MG CHEWABLE TABLETS ONE (16:39)
[2021-05-21] MEDS ORDERED: ALBUTEROL SO4 HFA INHALER IH PRN (19:29)
[2021-05-21] MEDS ORDERED: APIXABAN 5 MG TABLET ONE (22:24)
[2021-05-21] MEDS: APIXABAN 5 MG TABLET PO SCH (22:27)
[2021-05-22 06:43] LABS: BASO % 0.9 % (0-2.0); EOS % 1.4 % (0-4.5); HEMATOCRIT 43.5 % (35.4-49); HEMOGLOBIN 15.1 GM/dL (11.7-16.9); LYMPH % 30.2 % (8-40); MCH 30.9 pg (25.7-33.7); MCHC 34.7 g/dl (32.0-35.9); MEAN CELL VOLUME 89.1 fl (80-96); MEAN PLT VOLUME 10.4 fl (7.5-11.1); MONO % 11.1 % (3.8-10.2); NEUT % 56.4 % (42.8-82.8); PLATELET COUNT 203 10^3/uL (134-434); RBC 4.88 M/mm3 (4.00-5.60); RDW 15.7 % (11.9-15.9); WHITE BLOOD COUNT 5.9 K/mm3 (4.0-10.0)
[2021-05-22 06:55] LABS: CHLORIDE 105 mmol/L (98-107); SODIUM 143 mmol/L (136-145)
[2021-05-22 07:14] LABS: ALBUMIN 3.4 g/dl (3.4-5.0); ALK PHOS 52 U/L (45-117); ANION GAP 7 MMOL/L (8-16); CO2 31 mmol/L (21-32); CREATININE 1.3 mg/dL (0.55-1.3); GLUCOSE,RANDOM 106 mg/dL (74-106); SGOT/AST 11 U/L (15-37); SGPT/ALT 22 U/L (13-61)
[2021-05-22 07:15] LABS: CALCIUM 9.3 mg/dL (8.5-10.1)
[2021-05-22 07:16] LABS: BILIRUBIN,TOTAL 1.4 mg/dL (0.2-1); MAGNESIUM 2.1 mg/dL (1.8-2.4); TOT PROT 6.5 g/dl (6.4-8.2)
[2021-05-22] MEDS ORDERED: dilTIAZem HCL 60 MG TABLET ONE (08:20)
[2021-05-22] MEDS ORDERED: PT OWN MED DRAWER 7, Y5N ONE ×2 (08:23→09:40)
[2021-05-22] MEDS ORDERED: dilTIAZem HCL 50 MG/10 ML - 10 ML VIAL IVPUSH ONE (08:24)
[2021-05-22] MEDS ORDERED: dilTIAZem HCL 125 MG/25 ML - 25 ML VIAL ONE (08:26)
[2021-05-22] MEDS ORDERED: ASCORBIC ACID 500 MG TABLET (FP) ONE (09:41)
[2021-05-22] MEDS ORDERED: APIXABAN 5 MG TABLET ONE ×2 (09:42→21:09)
[2021-05-22] MEDS ORDERED: TAMSULOSIN HCL 0.4 MG CAP ONE (09:42)
[2021-05-22] MEDS ORDERED: ASPIRIN 81 MG CHEWABLE TABLETS ONE (09:42)
[2021-05-22] MEDS: APIXABAN 5 MG TABLET PO SCH ×2 (09:54→21:16)
[2021-05-22] MEDS: CYANOCOBALAMIN 1,000 MCG TABLET (FP) PO SCH (09:54)
[2021-05-22] MEDS: ASPIRIN 81 MG CHEWABLE TABLETS PO SCH (09:54)
[2021-05-22] MEDS: TAMSULOSIN HCL 0.4 MG CAP PO SCH (09:54)
[2021-05-22] MEDS: ASCORBIC ACID 500 MG TABLET (FP) PO SCH (09:54)
[2021-05-22] MEDS ORDERED: PATIENT'S OWN MEDICATION (NON-FORMULARY) (Silodosin [Rapaflo] 8 MG Capsule) PO SCH (10:00)
[2021-05-22] MEDS ORDERED: FUROSEMIDE 40 MG TABLET (FP) PO ONE (15:18)
[2021-05-22] MEDS ORDERED: FUROSEMIDE 40 MG TABLET (FP) ONE (15:37)
[2021-05-23] MEDS: TAMSULOSIN HCL 0.4 MG CAP PO SCH (08:09)
[2021-05-23] MEDS: APIXABAN 5 MG TABLET PO SCH ×2 (09:15→21:09)
[2021-05-23] MEDS: ASCORBIC ACID 500 MG TABLET (FP) PO SCH (09:15)
[2021-05-23] MEDS: CYANOCOBALAMIN 1,000 MCG TABLET (FP) PO SCH (09:15)
[2021-05-23] MEDS: ASPIRIN 81 MG CHEWABLE TABLETS PO SCH (09:15)
[2021-05-23] MEDS ORDERED: FUROSEMIDE 40 MG TABLET (FP) PO SCH (10:00)
[2021-05-23] MEDS ORDERED: FUROSEMIDE 40 MG/4 ML INJECTABLE VIAL IVPUSH ONE (11:01)
[2021-05-24] MEDS: TAMSULOSIN HCL 0.4 MG CAP PO SCH (08:51)
[2021-05-24] MEDS: CYANOCOBALAMIN 1,000 MCG TABLET (FP) PO SCH (09:27)
[2021-05-24] MEDS: ASCORBIC ACID 500 MG TABLET (FP) PO SCH (09:27)
[2021-05-24] MEDS: APIXABAN 5 MG TABLET PO SCH ×2 (09:27→21:10)
[2021-05-24] MEDS: ASPIRIN 81 MG CHEWABLE TABLETS PO SCH (09:27)
[2021-05-24 12:22] LABS: HEMATOCRIT 42.9 % (35.4-49); HEMOGLOBIN 14.7 GM/dL (11.7-16.9); MCH 30.6 pg (25.7-33.7); MCHC 34.4 g/dl (32.0-35.9); MEAN PLT VOLUME 10.5 fl (7.5-11.1); PLATELET COUNT 215 10^3/uL (134-434); RBC 4.82 M/mm3 (4.00-5.60); RDW 15.7 % (11.9-15.9); WHITE BLOOD COUNT 5.4 K/mm3 (4.0-10.0)
[2021-05-24 12:49] LABS: BLOOD UREA NITROGEN 18.9 mg/dL (7-18); CALCIUM 9.5 mg/dL (8.5-10.1)
[2021-05-24 12:52] LABS: CREATININE 1.3 mg/dL (0.55-1.3)
[2021-05-24] MEDS ORDERED: FUROSEMIDE 40 MG/4 ML INJECTABLE VIAL IVPUSH SCH (14:00)
[2021-05-24] MEDS ORDERED: POTASSIUM CHLORIDE TABS 20 MEQ TABLET.ER (FP) PO ONE (16:55)
[2021-05-24] MEDS ORDERED: MELATONIN 5 MG TABLETS PO PRN (23:19)
[2021-05-25] MEDS: APIXABAN 5 MG TABLET PO SCH ×2 (09:33→21:09)
[2021-05-25] MEDS: ASCORBIC ACID 500 MG TABLET (FP) PO SCH (09:33)
[2021-05-25] MEDS: TAMSULOSIN HCL 0.4 MG CAP PO SCH (09:33)
[2021-05-25] MEDS: ASPIRIN 81 MG CHEWABLE TABLETS PO SCH (09:33)
[2021-05-25] MEDS: CYANOCOBALAMIN 1,000 MCG TABLET (FP) PO SCH (09:34)
[2021-05-25] MEDS ORDERED: FUROSEMIDE 40 MG/4 ML INJECTABLE VIAL IVPUSH SCH (10:00)
[2021-05-25 12:00] LABS: BLOOD UREA NITROGEN 22.6 mg/dL (7-18); CALCIUM 9.1 mg/dL (8.5-10.1)
[2021-05-25 12:04] LABS: CREATININE 1.4 mg/dL (0.55-1.3)
[2021-05-25] MEDS ORDERED: COLCHICINE 0.6 MG CAP PO ONE (15:44)
[2021-05-25] MEDS ORDERED: COLCHICINE 0.6 MG TAB PO ONE (16:00)
[2021-05-25] MEDS: INDOMETHACIN 50 MG CAPSULE PO SCH (17:34)
[2021-05-25] MEDS ORDERED: PT OWN MED DRAWER 7, Y5N ONE ×2 (17:36→17:41)
[2021-05-25] MEDS ORDERED: POTASSIUM CHLORIDE TABS 10 MEQ TABLET.ER (FP) PO ONE (18:28)
[2021-05-26 08:35] LABS: CALCIUM 9.2 mg/dL (8.5-10.1)
[2021-05-26 08:36] LABS: BLOOD UREA NITROGEN 24.1 mg/dL (7-18)
[2021-05-26 08:39] LABS: CREATININE 1.3 mg/dL (0.55-1.3)
[2021-05-26] MEDS: ASCORBIC ACID 500 MG TABLET (FP) PO SCH (10:11)
[2021-05-26] MEDS: TAMSULOSIN HCL 0.4 MG CAP PO SCH (10:11)
[2021-05-26] MEDS: CYANOCOBALAMIN 1,000 MCG TABLET (FP) PO SCH (10:11)
[2021-05-26] MEDS: ASPIRIN 81 MG CHEWABLE TABLETS PO SCH (10:11)
[2021-05-26] MEDS: FUROSEMIDE 40 MG TABLET (FP) PO SCH (10:11)
[2021-05-26] MEDS: APIXABAN 5 MG TABLET PO SCH ×2 (10:12→21:06)
[2021-05-26] MEDS: INDOMETHACIN 50 MG CAPSULE PO SCH ×2 (10:14→18:27)
[2021-05-26] MEDS ORDERED: PT OWN MED DRAWER 7, Y5N ONE ×3 (12:32→21:03)
[2021-05-26] MEDS: BUDESONIDE/FORMETEROL FUMARATE 80/4.5 mcg INHALER IH SCH (21:06)
[2021-05-27] MEDS ORDERED: PT OWN MED DRAWER 7, Y5N ONE (07:51)
[2021-05-27] MEDS: TAMSULOSIN HCL 0.4 MG CAP PO SCH (07:54)
[2021-05-27] MEDS: INDOMETHACIN 50 MG CAPSULE PO SCH (07:54)
[2021-05-27 08:04] LABS: CALCIUM 9.7 mg/dL (8.5-10.1)
[2021-05-27 08:05] LABS: BLOOD UREA NITROGEN 24.8 mg/dL (7-18)
[2021-05-27 08:09] LABS: CREATININE 1.2 mg/dL (0.55-1.3)
[2021-05-27] MEDS ORDERED: POTASSIUM CHLORIDE TABS 20 MEQ TABLET.ER (FP) PO ONE (08:50)
[2021-05-27] MEDS: APIXABAN 5 MG TABLET PO SCH (09:12)
[2021-05-27] MEDS: ASPIRIN 81 MG CHEWABLE TABLETS PO SCH (09:12)
[2021-05-27] MEDS: CYANOCOBALAMIN 1,000 MCG TABLET (FP) PO SCH (09:12)
[2021-05-27] MEDS: ASCORBIC ACID 500 MG TABLET (FP) PO SCH (09:13)
[2021-05-27] MEDS: FUROSEMIDE 40 MG TABLET (FP) PO SCH (09:13)
[2021-05-27] MEDS: BUDESONIDE/FORMETEROL FUMARATE 80/4.5 mcg INHALER IH SCH (09:17)
[2021-05-27 13:38] VITALS: BP 140/92; PULSE 88; TEMP 98.3
[2021-05-28] MEDS ORDERED: POTASSIUM CHLORIDE TABS 20 MEQ TABLET.ER (FP) PO SCH (10:00)
== END 2021-05-27 14:15 | disposition home or self-care (01) | DRG 308 ==
LOC: JER 14:37 → JERBED 16:38 → J4S 05-22 23:24 → OBSVTOIN 05-24 09:05
PROVIDERS: ADMIT Internal Medicine; ATTEND Family Medicine
DX: I48.91 Unspecified atrial fibrillation (principal); I50.33 Acute on chronic diastolic (congestive) heart failure; I13.0 Hypertensive heart and chronic kidney disease with heart failure and stage 1 through stage 4 chronic kidney disease, or unspecified chronic kidney disease; N18.9 Chronic kidney disease, unspecified; T42.0X6A Underdosing of hydantoin derivatives, initial encounter; T44.7X6A Underdosing of beta-adrenoreceptor antagonists, initial encounter; N40.0 Benign prostatic hyperplasia without lower urinary tract symptoms; E66.9 Obesity, unspecified; Z68.29 Body mass index [BMI] 29.0-29.9, adult; M10.9 Gout, unspecified; R07.9 Chest pain, unspecified
CPT/HCPCS: 36415; 71045-TC-FY; 73660-TC-LT-FY; 80048; 80053; 82550; 83735; 83880; 84484; 84550; 85025; 85027; 85651; 86140; 93005; 93010; 94761; 97116-GP; 97161-GP; 99285-25; C9803; G0378; U0003; U0005

== ENCOUNTER 2021-06-01 13:23 | Inpatient (IN) | payer MEDICARE, OTHER ==
[2021-06-01 14:04] VITALS: BMI 29.2
[2021-06-01 16:59] LABS: BASO % 0.9 % (0-2.0); EOS % 1.2 % (0-4.5); HEMATOCRIT 43.5 % (35.4-49); HEMOGLOBIN 14.6 GM/dL (11.7-16.9); LYMPH % 30.8 % (8-40); MCH 30.2 pg (25.7-33.7); MCHC 33.6 g/dl (32.0-35.9); MEAN CELL VOLUME 89.9 fl (80-96); MEAN PLT VOLUME 10.8 fl (7.5-11.1); MONO % 9.8 % (3.8-10.2); NEUT % 57.3 % (42.8-82.8); PLATELET COUNT 201 10^3/uL (134-434); RBC 4.84 M/mm3 (4.00-5.60); RDW 15.6 % (11.9-15.9); WHITE BLOOD COUNT 6.6 K/mm3 (4.0-10.0)
[2021-06-01 17:13] LABS: CHLORIDE 106 mmol/L (98-107); SODIUM 142 mmol/L (136-145)
[2021-06-01 17:15] LABS: ALBUMIN 3.4 g/dl (3.4-5.0); ANION GAP 10 MMOL/L (8-16); BLOOD UREA NITROGEN 23.3 mg/dL (7-18); CALCIUM 9.7 mg/dL (8.5-10.1); CO2 25 mmol/L (21-32); GLUCOSE,RANDOM 108 mg/dL (74-106)
[2021-06-01 17:16] LABS: MAGNESIUM 1.9 mg/dL (1.8-2.4)
[2021-06-01 17:18] LABS: CREATININE 1.5 mg/dL (0.55-1.3); PHOSPHOROUS 3.6 mg/dL (2.5-4.9); SGOT/AST 21 U/L (15-37); SGPT/ALT 20 U/L (13-61)
[2021-06-01 17:20] LABS: BILIRUBIN,TOTAL 0.9 mg/dL (0.2-1); TOT PROT 6.5 g/dl (6.4-8.2)
[2021-06-01 17:21] LABS: ALK PHOS 58 U/L (45-117)
[2021-06-01 17:24] LABS: N-TERMINAL BNP 5579.1 pg/ml (5-125)
[2021-06-01] MEDS ORDERED: FUROSEMIDE 40 MG/4 ML INJECTABLE VIAL IVPUSH ONE (18:23)
[2021-06-01] MEDS ORDERED: FUROSEMIDE 40 MG/4 ML INJECTABLE VIAL ONE (18:29)
[2021-06-01] MEDS: KCL 10 MEQ IVPB 10 MEQ/100 ML INFUS.BAG IVPB SCH ×2 (18:45→20:45)
[2021-06-01] MEDS ORDERED: POTASSIUM CHLORIDE TABS 20 MEQ TABLET.ER (FP) PO ONE ×2 (20:33→20:36)
[2021-06-01] MEDS ORDERED: KCL 10 MEQ IVPB 10 MEQ/100 ML INFUS.BAG IVPB ONE (20:34)
[2021-06-01] MEDS ORDERED: KCL 10 MEQ IVPB 10 MEQ/100 ML INFUS.BAG IVPB SCH (20:45)
[2021-06-01] MEDS ORDERED: ALBUTEROL SO4 HFA INHALER IH PRN (21:31)
[2021-06-01] MEDS ORDERED: ACETAMINOPHEN 325 MG TABLET (FP) PO PRN (21:53)
[2021-06-01] MEDS ORDERED: APIXABAN 5 MG TABLET ONE (23:34)
[2021-06-01] MEDS: APIXABAN 5 MG TABLET PO SCH (23:34)
[2021-06-02] MEDS: BUDESONIDE/FORMETEROL FUMARATE 80/4.5 mcg INHALER IH SCH ×3 (01:00→21:09)
[2021-06-02 01:45] LABS: BLOOD UREA NITROGEN 24.2 mg/dL (7-18); CALCIUM 9.5 mg/dL (8.5-10.1); MAGNESIUM 1.9 mg/dL (1.8-2.4)
[2021-06-02 01:49] LABS: CREATININE 1.6 mg/dL (0.55-1.3)
[2021-06-02] MEDS ORDERED: POTASSIUM CHLORIDE TABS 20 MEQ TABLET.ER (FP) PO ONE ×3 (03:38→10:12)
[2021-06-02 06:19] LABS: BASO % 0.8 % (0-2.0); EOS % 1.6 % (0-4.5); HEMATOCRIT 43.7 % (35.4-49); HEMOGLOBIN 14.9 GM/dL (11.7-16.9); LYMPH % 32.5 % (8-40); MCH 30.3 pg (25.7-33.7); MCHC 34.1 g/dl (32.0-35.9); MEAN CELL VOLUME 88.7 fl (80-96); MEAN PLT VOLUME 10.7 fl (7.5-11.1); MONO % 10.1 % (3.8-10.2); PLATELET COUNT 186 10^3/uL (134-434); RBC 4.93 M/mm3 (4.00-5.60); RDW 15.5 % (11.9-15.9); WHITE BLOOD COUNT 5.9 K/mm3 (4.0-10.0)
[2021-06-02] MEDS ORDERED: hydrALAZINE HCL 20 MG/ML VIAL IM PRN (07:28)
[2021-06-02] MEDS ORDERED: UMECLIDINIUM/VILANTEROL (ANORO) 62.5/25 MCG INHALER IH SCH (10:00)
[2021-06-02] MEDS ORDERED: FUROSEMIDE 20 MG TABLET (FP) PO SCH (10:00)
[2021-06-02] MEDS ORDERED: ASCORBIC ACID 500 MG TABLET (FP) ONE (10:12)
[2021-06-02] MEDS ORDERED: APIXABAN 5 MG TABLET ONE (10:12)
[2021-06-02] MEDS ORDERED: TAMSULOSIN HCL 0.4 MG CAP ONE (10:13)
[2021-06-02] MEDS ORDERED: dilTIAZem HCL 60 MG TABLET ONE (10:13)
[2021-06-02] MEDS ORDERED: FUROSEMIDE 40 MG/4 ML INJECTABLE VIAL ONE (10:13)
[2021-06-02] MEDS: FUROSEMIDE 40 MG/4 ML INJECTABLE VIAL IVPUSH SCH (10:20)
[2021-06-02] MEDS: POTASSIUM CHLORIDE TABS 20 MEQ TABLET.ER (FP) PO SCH (10:20)
[2021-06-02] MEDS: TAMSULOSIN HCL 0.4 MG CAP PO SCH (10:20)
[2021-06-02] MEDS: APIXABAN 5 MG TABLET PO SCH ×2 (10:20→21:09)
[2021-06-02] MEDS: ASCORBIC ACID 500 MG TABLET (FP) PO SCH (10:20)
[2021-06-02] MEDS ORDERED: PT OWN MED DRAWER 7, Y5N ONE (10:26)
[2021-06-02] MEDS: CYANOCOBALAMIN 1,000 MCG TABLET (FP) PO SCH (11:58)
[2021-06-02] MEDS ORDERED: hydrALAZINE HCL 25 MG TABLET (FP) ONE (14:16)
[2021-06-02] MEDS ORDERED: ALBUTEROL SO4 HFA INHALER IH ONE (14:16)
[2021-06-02] MEDS: hydrALAZINE HCL 25 MG TABLET (FP) PO SCH ×2 (14:21→21:09)
[2021-06-02 18:21] LABS: PH,URINE 6.5 (5.0-8.0); URINE APPEARANCE CLEAR; URINE BILIRUBIN NEGATIVE (NEGATIVE); URINE COLOR YELLOW; URINE GLUCOSE (UA) NEGATIVE (NEGATIVE); URINE KETONE NEGATIVE (NEGATIVE); URINE LEUK ESTERASE NEGATIVE (NEGATIVE); URINE NITRITE NEGATIVE (NEGATIVE); URINE PROTEIN NEGATIVE (NEGATIVE); URINE UROBILINOGEN 0.2 mg/dL (0.2-1.0)
[2021-06-03] MEDS: hydrALAZINE HCL 25 MG TABLET (FP) PO SCH ×3 (05:34→21:37)
[2021-06-03 08:19] LABS: ALBUMIN 3.5 g/dl (3.4-5.0)
[2021-06-03 08:20] LABS: BLOOD UREA NITROGEN 30.1 mg/dL (7-18); CALCIUM 9.3 mg/dL (8.5-10.1)
[2021-06-03 08:22] LABS: BILIRUBIN,TOTAL 1.4 mg/dL (0.2-1); TOT PROT 6.5 g/dl (6.4-8.2)
[2021-06-03 08:25] LABS: CREATININE 1.5 mg/dL (0.55-1.3)
[2021-06-03] MEDS: BUDESONIDE/FORMETEROL FUMARATE 80/4.5 mcg INHALER IH SCH ×2 (09:11→21:38)
[2021-06-03] MEDS: FUROSEMIDE 40 MG/4 ML INJECTABLE VIAL IVPUSH SCH (09:11)
[2021-06-03] MEDS: TAMSULOSIN HCL 0.4 MG CAP PO SCH (09:11)
[2021-06-03] MEDS: APIXABAN 5 MG TABLET PO SCH ×2 (09:11→21:37)
[2021-06-03] MEDS: ASCORBIC ACID 500 MG TABLET (FP) PO SCH (09:11)
[2021-06-03] MEDS: POTASSIUM CHLORIDE TABS 20 MEQ TABLET.ER (FP) PO SCH (09:11)
[2021-06-03] MEDS: CYANOCOBALAMIN 1,000 MCG TABLET (FP) PO SCH (09:11)
[2021-06-03] MEDS: MELATONIN 5 MG TABLETS PO PRN (21:37)
[2021-06-04] MEDS: hydrALAZINE HCL 25 MG TABLET (FP) PO SCH ×3 (06:42→21:41)
[2021-06-04] MEDS: TAMSULOSIN HCL 0.4 MG CAP PO SCH (08:58)
[2021-06-04] MEDS: APIXABAN 5 MG TABLET PO SCH ×2 (09:12→21:41)
[2021-06-04] MEDS: BUDESONIDE/FORMETEROL FUMARATE 80/4.5 mcg INHALER IH SCH ×2 (09:12→21:41)
[2021-06-04] MEDS: FUROSEMIDE 40 MG/4 ML INJECTABLE VIAL IVPUSH SCH (09:12)
[2021-06-04] MEDS: POTASSIUM CHLORIDE TABS 20 MEQ TABLET.ER (FP) PO SCH (09:12)
[2021-06-04] MEDS: CYANOCOBALAMIN 1,000 MCG TABLET (FP) PO SCH (09:13)
[2021-06-04] MEDS: ASCORBIC ACID 500 MG TABLET (FP) PO SCH (09:13)
[2021-06-04 09:51] LABS: BLOOD UREA NITROGEN 24.6 mg/dL (7-18); CALCIUM 8.8 mg/dL (8.5-10.1)
[2021-06-04 09:54] LABS: CREATININE 1.2 mg/dL (0.55-1.3)
[2021-06-04] MEDS: MELATONIN 5 MG TABLETS PO PRN (21:40)
[2021-06-05] MEDS: hydrALAZINE HCL 25 MG TABLET (FP) PO SCH ×3 (06:03→21:51)
[2021-06-05] MEDS: APIXABAN 5 MG TABLET PO SCH ×2 (09:27→21:51)
[2021-06-05] MEDS: ASCORBIC ACID 500 MG TABLET (FP) PO SCH (09:27)
[2021-06-05] MEDS: CYANOCOBALAMIN 1,000 MCG TABLET (FP) PO SCH (09:27)
[2021-06-05] MEDS: FUROSEMIDE 40 MG/4 ML INJECTABLE VIAL IVPUSH SCH (09:27)
[2021-06-05] MEDS: TAMSULOSIN HCL 0.4 MG CAP PO SCH (09:27)
[2021-06-05] MEDS: BUDESONIDE/FORMETEROL FUMARATE 80/4.5 mcg INHALER IH SCH ×2 (09:27→21:51)
[2021-06-05] MEDS: POTASSIUM CHLORIDE TABS 20 MEQ TABLET.ER (FP) PO SCH (09:27)
[2021-06-05] MEDS: MELATONIN 5 MG TABLETS PO PRN (21:55)
[2021-06-06] MEDS: hydrALAZINE HCL 25 MG TABLET (FP) PO SCH ×3 (05:29→21:40)
[2021-06-06 08:23] LABS: CALCIUM 8.9 mg/dL (8.5-10.1)
[2021-06-06 08:24] LABS: BLOOD UREA NITROGEN 18.9 mg/dL (7-18); MAGNESIUM 1.9 mg/dL (1.8-2.4)
[2021-06-06 08:27] LABS: CREATININE 1.2 mg/dL (0.55-1.3)
[2021-06-06] MEDS: POTASSIUM CHLORIDE TABS 20 MEQ TABLET.ER (FP) PO SCH (09:11)
[2021-06-06] MEDS: BUDESONIDE/FORMETEROL FUMARATE 80/4.5 mcg INHALER IH SCH ×2 (09:11→21:40)
[2021-06-06] MEDS: FUROSEMIDE 40 MG/4 ML INJECTABLE VIAL IVPUSH SCH (09:11)
[2021-06-06] MEDS: ASCORBIC ACID 500 MG TABLET (FP) PO SCH (09:11)
[2021-06-06] MEDS: APIXABAN 5 MG TABLET PO SCH ×2 (09:11→21:40)
[2021-06-06] MEDS: TAMSULOSIN HCL 0.4 MG CAP PO SCH (09:11)
[2021-06-06] MEDS: CYANOCOBALAMIN 1,000 MCG TABLET (FP) PO SCH (09:14)
[2021-06-06] MEDS ORDERED: POTASSIUM CHLORIDE TABS 20 MEQ TABLET.ER (FP) PO ONE (10:00)
[2021-06-06] MEDS: MELATONIN 5 MG TABLETS PO PRN (21:41)
[2021-06-07] MEDS: hydrALAZINE HCL 25 MG TABLET (FP) PO SCH ×3 (05:26→21:30)
[2021-06-07 08:58] LABS: CALCIUM 8.9 mg/dL (8.5-10.1)
[2021-06-07 08:59] LABS: BLOOD UREA NITROGEN 17.2 mg/dL (7-18); MAGNESIUM 2.1 mg/dL (1.8-2.4)
[2021-06-07 09:02] LABS: CREATININE 1.2 mg/dL (0.55-1.3)
[2021-06-07 09:03] LABS: BILIRUBIN,TOTAL 1.4 mg/dL (0.2-1)
[2021-06-07 09:04] LABS: TOT PROT 6.1 g/dl (6.4-8.2)
[2021-06-07 09:23] LABS: ALBUMIN 2.8 g/dl (3.4-5.0)
[2021-06-07] MEDS: CYANOCOBALAMIN 1,000 MCG TABLET (FP) PO SCH (11:24)
[2021-06-07] MEDS: TAMSULOSIN HCL 0.4 MG CAP PO SCH (11:24)
[2021-06-07] MEDS: FUROSEMIDE 40 MG/4 ML INJECTABLE VIAL IVPUSH SCH (11:25)
[2021-06-07] MEDS: BUDESONIDE/FORMETEROL FUMARATE 80/4.5 mcg INHALER IH SCH ×2 (11:25→21:30)
[2021-06-07] MEDS: POTASSIUM CHLORIDE TABS 20 MEQ TABLET.ER (FP) PO SCH (11:25)
[2021-06-07] MEDS: APIXABAN 5 MG TABLET PO SCH ×2 (11:25→21:30)
[2021-06-07] MEDS: ASCORBIC ACID 500 MG TABLET (FP) PO SCH (11:25)
[2021-06-07] MEDS ORDERED: POTASSIUM CHLORIDE TABS 20 MEQ TABLET.ER (FP) PO ONE (11:43)
[2021-06-07] MEDS: MELATONIN 5 MG TABLETS PO PRN (21:35)
[2021-06-08] MEDS: hydrALAZINE HCL 25 MG TABLET (FP) PO SCH ×3 (05:42→21:57)
[2021-06-08] MEDS: TAMSULOSIN HCL 0.4 MG CAP PO SCH (09:49)
[2021-06-08] MEDS: CYANOCOBALAMIN 1,000 MCG TABLET (FP) PO SCH (09:49)
[2021-06-08] MEDS: APIXABAN 5 MG TABLET PO SCH ×2 (09:49→21:57)
[2021-06-08] MEDS: POTASSIUM CHLORIDE TABS 20 MEQ TABLET.ER (FP) PO SCH (09:49)
[2021-06-08] MEDS: ASCORBIC ACID 500 MG TABLET (FP) PO SCH (09:49)
[2021-06-08] MEDS: FUROSEMIDE 40 MG/4 ML INJECTABLE VIAL IVPUSH SCH (09:49)
[2021-06-08] MEDS: BUDESONIDE/FORMETEROL FUMARATE 80/4.5 mcg INHALER IH SCH ×2 (09:53→21:59)
[2021-06-08 17:13] LABS: SARS-CoV-2 NAA Not Detected (Not Detected)
[2021-06-09] MEDS: hydrALAZINE HCL 25 MG TABLET (FP) PO SCH (05:29)
[2021-06-09 06:42] VITALS: BP 141/60; PULSE 87; TEMP 98
[2021-06-09 07:13] LABS: ALBUMIN 2.6 g/dl (3.4-5.0); BILIRUBIN,TOTAL 1.1 mg/dL (0.2-1); BLOOD UREA NITROGEN 15.1 mg/dL (7-18); CALCIUM 8.8 mg/dL (8.5-10.1); CREATININE 1.2 mg/dL (0.55-1.3); TOT PROT 5.9 g/dl (6.4-8.2)
== END 2021-06-09 07:28 | disposition short-term general hospital (02) | DRG 291 ==
LOC: JER 13:23 → JERBED 18:29 → J4W 06-02 17:15
PROVIDERS: ADMIT Internal Medicine; ATTEND Family Medicine
DX: I13.0 Hypertensive heart and chronic kidney disease with heart failure and stage 1 through stage 4 chronic kidney disease, or unspecified chronic kidney disease (principal); I50.33 Acute on chronic diastolic (congestive) heart failure; N17.9 Acute kidney failure, unspecified; I48.92 Unspecified atrial flutter; I48.0 Paroxysmal atrial fibrillation; N40.0 Benign prostatic hyperplasia without lower urinary tract symptoms; E87.6 Hypokalemia; J44.9 Chronic obstructive pulmonary disease, unspecified; R00.0 Tachycardia, unspecified; R29.818 Other symptoms and signs involving the nervous system; N18.9 Chronic kidney disease, unspecified; R60.0 Localized edema; R09.02 Hypoxemia; N28.1 Cyst of kidney, acquired; R00.2 Palpitations; Z86.711 Personal history of pulmonary embolism; Z86.718 Personal history of other venous thrombosis and embolism
CPT/HCPCS: 36415; 71045-TC-FY; 71250-TC; 76775-TC; 80048; 80053; 81003; 82570; 83735; 83880; 84100; 84156; 84484; 85025; 85027; 86769; 93005; 93010; 99285-25; C9803; U0003; U0005

== ENCOUNTER 2022-06-02 12:49 | Emergency (ER) | payer MEDICARE, OTHER ==
[2022-06-02 13:03] VITALS: RESP 18; TEMP 98; BMI 29.9
[2022-06-02] MEDS ORDERED: SODIUM CHLORIDE 0.9% 500 ML INFUS.BAG IV ONE (13:44)
[2022-06-02] MEDS ORDERED: ONDANSETRON 4 MG/2 ML VIAL IVPUSH ONE (13:44)
[2022-06-02] MEDS ORDERED: ONDANSETRON 4 MG/2 ML VIAL ONE (13:58)
[2022-06-02 14:31] LABS: BASO % 0.4 % (0-2.0); EOS % 0.5 % (0-4.5); HEMATOCRIT 44.8 % (35.4-49); HEMOGLOBIN 15.6 GM/dL (11.7-16.9); MCH 30.4 pg (25.7-33.7); MCHC 34.9 g/dl (32.0-35.9); MONO % 7.4 % (3.8-10.2); NEUT % 65.7 % (42.8-82.8); PLATELET COUNT 178 10^3/uL (134-434); RBC 5.15 M/mm3 (4.00-5.60); RDW 14.2 % (11.9-15.9); WHITE BLOOD COUNT 6.1 K/mm3 (4.0-10.0)
[2022-06-02 14:34] LABS: ACTIVATED PTT 34.9 SECONDS (25.2-36.5); INR 1.26 (0.83-1.09); PROTHROMBIN TIME (PATIENT) 14.5 SEC (9.7-13.0)
[2022-06-02 14:45] LABS: CALCIUM 9.7 mg/dL (8.5-10.1)
[2022-06-02 14:46] LABS: ALBUMIN 3.8 g/dl (3.4-5.0); BLOOD UREA NITROGEN 15.8 mg/dL (7-18)
[2022-06-02 14:49] LABS: CREATININE 1.4 mg/dL (0.55-1.3); PHOSPHOROUS 2.5 mg/dL (2.5-4.9)
[2022-06-02 14:50] LABS: BILIRUBIN,TOTAL 0.9 mg/dL (0.2-1); TOT PROT 7.6 g/dl (6.4-8.2)
[2022-06-02] MEDS ORDERED: POTASSIUM CHLORIDE TABS 20 MEQ TABLET.ER (FP) PO ONE ×2 (15:08→15:19)
[2022-06-02 15:33] LABS: EPI CELLS 20 /uL (0-25.1); HYALINE CASTS 1 /uL (0-3.1); URINE APPEARANCE CLEAR; URINE BACTERIA 275 /uL (0-1359); URINE BILIRUBIN NEGATIVE (NEGATIVE); URINE COLOR YELLOW; URINE GLUCOSE (UA) NEGATIVE (NEGATIVE); URINE KETONE TRACE (NEGATIVE); URINE LEUK ESTERASE 1+ (NEGATIVE); URINE NITRITE NEGATIVE (NEGATIVE); URINE PROTEIN 1+ (NEGATIVE); URINE RBC 44 /uL (0-23.9); URINE WBC 33 /uL (0-25.8)
[2022-06-02] MEDS ORDERED: hydrALAZINE HCL 20 MG/ML VIAL IVPUSH ONE (16:46)
[2022-06-02] MEDS ORDERED: hydrALAZINE HCL 20 MG/ML VIAL ONE (16:47)
[2022-06-02 16:52] VITALS: PULSE 66
[2022-06-02 17:09] VITALS: BP 167/105
== END 2022-06-02 17:20 | disposition home or self-care (01) ==
LOC: JER 12:49
PROC: 3E033NZ Introduction of Analgesics, Hypnotics, Sedatives into Peripheral Vein, Percutaneous Approach (ICD-10-PCS; principal; 2022-06-02)
PROC: 3E033GC Introduction of Other Therapeutic Substance into Peripheral Vein, Percutaneous Approach (ICD-10-PCS; 2022-06-02)
DX: R42 Dizziness and giddiness (principal); R11.10 Vomiting, unspecified
CPT/HCPCS: 0241U-QW; 36415; 80053; 81003; 83690; 83735; 84100; 84484; 85025; 85610; 85730; 87086; 93005; 93010; 96374; 96375; 99284-25

== ENCOUNTER 2024-08-12 15:12 | Emergency (ER) | payer OTHER ==
[2024-08-12 15:30] VITALS: TEMP 98.3; BMI 26.9
[2024-08-12 16:59] LABS: BASO % 0.5 % (0-2.0); HEMOGLOBIN 13.5 GM/dL (11.7-16.9); LYMPH % 37.9 % (8-40); MCH 29.3 pg (25.7-33.7); MCHC 33.8 g/dl (32.0-35.9); MEAN CELL VOLUME 86.8 fl (80-96); MEAN PLT VOLUME 9.1 fl (7.5-11.1); MONO % 10.2 % (3.8-10.2); NEUT % 49.4 % (42.8-82.8); PLATELET COUNT 172 10^3/uL (134-434); RBC 4.61 M/mm3 (4.00-5.60); RDW 14.2 % (11.9-15.9); WHITE BLOOD COUNT 5.1 K/mm3 (4.0-10.0)
[2024-08-12 17:17] LABS: POTASSIUM 3.6 mmol/L (3.5-5.1)
[2024-08-12 17:22] LABS: ALBUMIN 3.6 g/dl (3.4-5.0); BLOOD UREA NITROGEN 17.2 mg/dL (7-18)
[2024-08-12 17:26] LABS: CREATININE 1.5 mg/dL (0.55-1.3)
[2024-08-12 17:27] LABS: BILIRUBIN,TOTAL 0.6 mg/dL (0.2-1); TOT PROT 6.8 g/dl (6.4-8.2)
[2024-08-12 18:16] LABS: EPI CELLS 25 /uL (0-25.1); HYALINE CASTS 0 /uL (0-3.1); PH,URINE 7.5 (5.0-8.0); URINE APPEARANCE CLOUDY; URINE BACTERIA 441 /uL (0-1359); URINE BILIRUBIN NEGATIVE (NEGATIVE); URINE COLOR YELLOW; URINE GLUCOSE (UA) NEGATIVE (NEGATIVE); URINE KETONE NEGATIVE (NEGATIVE); URINE LEUK ESTERASE 1+ (NEGATIVE); URINE NITRITE NEGATIVE (NEGATIVE); URINE PROTEIN NEGATIVE (NEGATIVE); URINE RBC 15 /uL (0-23.9); URINE WBC 14 /uL (0-25.8)
[2024-08-12] MEDS ORDERED: CEPHALEXIN MONOHYDRATE 500 MG CAPSULE (UD) ONE (18:32)
[2024-08-12] MEDS: CEPHALEXIN MONOHYDRATE 500 MG CAPSULE (UD) PO ONE (18:40)
[2024-08-12 18:41] VITALS: BP 141/59; PULSE 59; RESP 18
== END 2024-08-12 18:46 | disposition home or self-care (01) ==
LOC: JER 15:12
DX: R42 Dizziness and giddiness (principal); R53.81 Other malaise; R11.10 Vomiting, unspecified; Z20.822 Contact with and (suspected) exposure to COVID-19
CPT/HCPCS: 0241U-QW; 36415; 71046-TC-FY; 80053; 81003; 83880; 84484; 85025; 87086; 93005; 93010; 99285-25

== ENCOUNTER 2025-06-06 11:36 | Emergency (ER) | payer OTHER ==
[2025-06-06 11:42] VITALS: TEMP 98.1; BMI 25.0
[2025-06-06] MEDS ORDERED: SODIUM CHLORIDE 0.9% 500 ML INFUS.BAG IV ONE (12:33)
[2025-06-06] MEDS: SODIUM CHLORIDE 0.9% 500 ML INFUS.BAG IV ONE (13:33)
[2025-06-06 13:43] LABS: ABSOLUTE IMMATURE GRANULOCYTES 0.01 x10^3/uL (0.0-0.031); BASOPHILS # 0.04 x10^3/uL (0.01-0.08); EOSINOPHIL % 3.7 % (0.8-7.0); EOSINOPHILS # 0.18 x10^3/uL (0.04-0.54); MCHC 33.4 g/dl (32.3-36.5); MEAN CELL VOLUME 87.6 fl (79.0-92.2); MEAN PLT VOLUME 11.4 fl (9.4-12.4); MONOCYTE # 0.45 x10^3/uL (0.30-0.82); MONOCYTE % 9.2 % (5.3-12.2); RDW 13.2 % (12.2-16.6)
[2025-06-06 14:20] LABS: GLUCOSE,RANDOM 97 mg/dL (74-106)
[2025-06-06 14:21] LABS: TOT PROT 7.1 g/dl (6.4-8.2)
[2025-06-06 14:22] LABS: CO2 29 mmol/L (21-32)
[2025-06-06 14:23] LABS: ALK PHOS 136 U/L (40-150)
[2025-06-06 14:26] LABS: CREATININE 1.19 mg/dL (0.55-1.3); SGOT/AST 54 U/L (5-34); SGPT/ALT 20 U/L (0-55)
[2025-06-06 14:57] LABS: GLUCOSE,RANDOM 104.0 mg/dL (74-106)
[2025-06-06 14:58] LABS: CO2 27.0 mmol/L (21-32)
[2025-06-06 15:02] LABS: CREATININE 1.16 mg/dL (0.55-1.3)
[2025-06-06 15:08] VITALS: BP 139/72; PULSE 62; RESP 20
[2025-06-06 16:03] LABS: GLUCOSE,RANDOM 89.0 mg/dL (74-106)
[2025-06-06 16:05] LABS: CO2 26.0 mmol/L (21-32)
[2025-06-06 16:09] LABS: CREATININE 1.08 mg/dL (0.55-1.3)
[2025-06-06] MEDS ORDERED: MAGNESIUM SULFATE IN WATER 2 GM/50 ML IVPB IVPB ONE (17:32)
[2025-06-06] MEDS: MAGNESIUM SULF 50% (8.12 MEQ/2 ML-1 GM VIAL) IVPB ONE (17:35)
[2025-06-06] MEDS ORDERED: POTASSIUM CHLORIDE ORAL LIQUID 20 MEQ/15 ML ONE (18:28)
[2025-06-06] MEDS: POTASSIUM CHLORIDE ORAL LIQUID 20 MEQ/15 ML PO ONE (18:29)
== END 2025-06-06 18:41 | disposition home or self-care (01) ==
LOC: JER 11:36
PROC: 3E033GC Introduction of Other Therapeutic Substance into Peripheral Vein, Percutaneous Approach (ICD-10-PCS; principal; 2025-06-06)
DX: R53.1 Weakness (principal); R11.0 Nausea; R53.81 Other malaise; R10.13 Epigastric pain; R63.0 Anorexia; E83.42 Hypomagnesemia; E87.6 Hypokalemia
CPT/HCPCS: 36415; 80048; 80053; 82436; 83690; 83735; 83930; 83935; 84133; 84300; 85025; 96374; 99284-25